=== PATIENT | male | born 1945 | race Caucasian/White ===

== ENCOUNTER 2018-03-02 19:38 | Emergency (ER) | payer MEDICARE, OTHER, SELFPAY ==
[2018-03-02] VITALS (8 sets, daily range): BP systolic 138–159; BP diastolic 69–90; PULSE 68–83; RESP 12–23; TEMP 36.4; O2SAT 94–100
--- NOTE | 2018-03-02 19:58 | DI.CT.S_ITS ---
PROCEDURE: CT ANGIO HEAD AND NECK INDICATIONS: right gaze left weakness TECHNIQUE: Pre-contrast 4.5 mm thick sections acquired from the foramen magnum to the vertex. After the administration of intravenous contrast, 1 mm thick sections acquired from the aortic arch through the [place] of [place]. Post-contrast 4.5 mm thick sections then re-acquired from the foramen magnum to the vertex. 3-dimensional iaheoea-xcrydxvwk-pazycovtbg (MIP) and/or volume rendering reformats were acquired of the central intracranial vasculature and neck separately. COMPARISON: None. FINDINGS: Image quality: Suboptimal, related to motion artifact and suboptimal timing of the contrast bolus. The patient was noted to vomit after the injection. BRAIN: CSF spaces: Ventricles are mildly prominent. Basal cisterns are patent. Bilateral subdural fluid collections are identified, which demonstrate decreased attenuation (left greater than right). Density value is approximately 23 Hounsfield units. No layering fluid collections are evident. The subdural hygroma on the right measures up to approximately 7 mm. The subdural hygroma on the left measures up to approximately 9 mm and is best appreciated on the convexity. These fluid collections may be exaggerated by a frontal lobe parenchymal volume loss. Brain: No midline shift. No intracranial bleeds or masses. Bustos-white matter interface appears intact. There is parenchymal volume loss identified within the bilateral frontal lobes. The bustos-white matter interface within the right frontal region is somewhat attenuated. However, this may in part be related to motion artifact on the noncontrast images. There is increased density identified involving the right middle cerebral artery, compatible with a dense MCA sign (image 12, series 4). Skull and face: Calvarium and facial bones appear intact, without suspicious lesions. Orbits appear normal. Sinuses: Small amount of fluid is seen within the inferior right mastoid air cells. Otherwise, the imaged paranasal sinuses and mastoid air cells are clear. HEAD CT ANGIOGRAPHY: Anterior circulation: There is decreased flow identified within the intracranial portions of the right internal carotid artery when compared to the left. There is absent flow versus we attenuated flow throughout the entire course of the right middle cerebral artery and the proximal aspect of the right anterior cerebral artery. The left internal carotid artery, middle cerebral artery, and anterior strip arteries are widely patent. No aneurysms are evident. Posterior circulation: The right vertebral artery is noted to be dominant. The left vertebral artery is smaller in size and noted to be markedly attenuated within the intracranial portion. There may be high grade narrowing through this region. However, it is difficult to determine whether this is related to an artifact. The basilar artery is normal in course and caliber. The bilateral posterior cerebral arteries are also widely patent and otherwise unremarkable. No aneurysms are identified. The posterior communicating arteries are not definitely seen. NECK CT ANGIOGRAPHY: Carotid system: The great vessels demonstrate a conventional anatomy as they arise from the aortic arch. The origins of the common carotid arteries appear patent. The common carotid arteries demonstrate normal caliber and courses. There is atherosclerosis identified involving the bilateral common carotid arteries, which is mild in nature. There is moderate atherosclerosis involving the left carotid bulb and proximal left internal carotid artery with prominent associated tortuosity. Narrowing of the lumen of the vessel is present by approximately 50-60%. There is ozfa-ug-xmenmppn atherosclerotic irregularity noted involving the right carotid bulb with mild narrowing of the lumen of the vessel by approximately 40-50%. No occlusions are identified. The distal right internal carotid artery is small in size when compared to the left, as described above. Posterior circulation: The origins of the vertebral arteries both appear widely patent. The more superior extracranial portions of both vertebral arteries also demonstrate normal courses and calibers. They join to form a normal appearing basilar artery. Soft tissues: Visualized neck soft tissues demonstrate no suspicious abnormalities. Bones: No suspicious bony lesions. Visualized cervical spine appears normally aligned. Moderate multilevel degenerative changes of the cervical spine are present. There are postoperative changes of the sternum, suggesting prior median sternotomy. IMPRESSION: 1. No acute intracranial hemorrhage. 2. 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 There is no midline shift. 3. There is at least high-grade narrowing and likely occlusion of the right middle cerebral artery as well as the proximal right anterior cerebral artery, suggesting an arterial embolism. Corresponding slight loss of the bustos-white matter differentiation of the right frontal lobe is evident, suggesting diffuse parenchymal edema. 4. Marked irregularity involving the intracranial portion of the distal left vertebral artery may either be related to chronic high-grade atherosclerotic irregularity, acute dissection, or potentially near total acute occlusion and clinical correlation is recommended. Conventional MRI with diffusion imaging would be helpful to evaluate for acute downstream infarctions along the posterior circulation distribution. 5. Rpgx-xi-yvkautlf atherosclerosis of the bilateral cervical carotid is more prominent involving the proximal left internal carotid artery with 50-60% narrowing. There is 40-50% narrowing of the proximal right internal carotid artery. Discussed with Dr. Jon at 2043 hrs. on 03/01/18. Any quantitative measurements of stenosis were performed using NASCET criteria. Dictated by: Tavon Lopez M.D. on 03/02/2018 at 20:35 Approved by: Tavon Lopez M.D. on 03/02/2018 at 20:55
--- NOTE | 2018-03-02 20:05 | ED_ITS ---
HPI - Neuro Symptoms/Deficit General Chief Complaint: Neuro Symptoms/Deficit Stated Complaint: Possible Stroke Time Seen by Provider: 03/02/18 19:59 Source: family and EMS Mode of arrival: EMS History of Present Illness HPI Narrative: Patient is a 72-year-old male presenting with a sudden onset of left sided weakness. He was well all day today out by the pond. He was walking up the hill with grand kids heard him fall at about 645pm. He is noted to have left-sided deficits. He is awake and alert. No blood thinners. Location: left face, left arm and left leg Severity: severe Context: sudden onset Related Data Home Medications Medication Instructions Recorded Confirmed allopurinol 100 mg PO BID 03/02/18 03/02/18 aspirin [Aspir-Low] 81 mg PO DAILY 03/02/18 03/02/18 fluoxetine 20 mg PO DAILY 03/02/18 03/02/18 glipizide 5 mg PO BID 03/02/18 03/02/18 hydrochlorothiazide 25 mg PO DAILY 03/02/18 03/02/18 insulin glargine [Lantus Solostar 5 units SUB-Q DAILY 03/02/18 03/02/18 U-100 Insulin] ketoconazole 1 applic/day TOPICAL DAILY 03/02/18 03/02/18 losartan 100 mg PO DAILY 03/02/18 03/02/18 metformin 500 mg PO DAILY 03/02/18 03/02/18 metoprolol tartrate 50 mg PO BID 03/02/18 03/02/18 pravastatin 20 mg PO DAILY 03/02/18 03/02/18 Allergies Allergy/AdvReac Type Severity Reaction Status Date / Time niacin AdvReac Intermediate Flushing Verified 03/02/18 20:25 Review of Systems Review of Systems All systems reviewed & are unremarkable except as noted in HPI and below Constitutional Denies body ache(s), Denies fever(s) and Denies lethargy Cardiovascular Denies dyspnea and Denies dyspnea on exertion Respiratory Denies cough, Denies dyspnea, Denies dyspnea on exertion and Denies wheezing Gastrointestinal Gastrointestinal: Denies abdominal pain, Denies change in bowel habits, Denies diarrhea, Denies nausea and Denies vomiting Neurologic Reports system reviewed and no additional complaints, except as docu and Reports as per HPI Hematologic/Lymphatic Reports other (On ASA ) Allergic/Immunologic Denies wheezing PFSH Medical History Diabetes (Acute) Gout (Acute) High blood pressure (Acute) High cholesterol (Acute) Surgical History H/O coronary artery bypass surgery (Acute) Social History Smoking Status: Former smoker Exam Initial Vital Signs Initial Vital Signs: Vital Signs Pulse Rate 83 03/02/18 19:45 Respiratory Rate 16 03/02/18 19:45 Blood Pressure 147/90 H 03/02/18 19:45 Pulse Oximetry 100 03/02/18 19:45 Const General: acute distress Nutritional Appearance: overweight Orientation: alert, awake and oriented x3 Other: Diaphoretic HENMT Head: normal to inspection, normocephalic and No contusion Ears: hearing grossly normal bilaterally Face and sinus: face asymmetric (left facial droop) and no abrasions Eyes Eyelids: eyelids normal Pupils: PERRL EOM: EOM intact bilaterally Other: right gaze Chest Chest: other (CABG scar) Resp Effort & Inspection: normal respiratory effort and able to speak in complete sentences Auscultation: clear to auscultation bilaterally Cardio Rate: regular rate Rhythm: regular rhythm Heart Sounds: no click, no gallops, no murmurs and no rubs Pulses: normal peripheral pulses GI Inspection: non-distended Palpation: soft, no hepatosplenomegaly, No guarding, No pulsatile mass and No tender Auscultation: normal bowel sounds Skin General: other (Diaphoretic) Neuro General: alert, awake and oriented x3 Cranial Nerves: No CN's II-XI intact bilaterally, PERRL and No facial strength normal (Left facial droop) Cognition: normal cognition Speech: speech normal Motor: movement abnormality noted (Left upper and lower extremity no movement) Sensory Exam: other (Left-sided sensory deficits) Coordination: vaposu-ka-uquq test normal (Right side only) and cxui-fa-bhft test normal (Right-sided only) Scores NIH Stroke Scale Level of Conciousness: Alert, keenly responsive Ask month/age: Answers both questions correctly. Open/close eyes, close hand: Performs both tasks correctly Best gaze horizontal: Forced deviation or total gaze paresis not overcome Visual sexton: No visual loss Facial palsy: Complete paralysis, absence of movement in the upper and lower face Left arm drift: No movement Right arm drift: No drift for full 10 sec Left leg drift: No movement Right leg drift: No drift for full 10 sec Limb ataxia: Absent Sensory on face/arms/legs: Severe to total sensory loss, not aware of touch, coma, quadriplegic Best language: No aphasia, normal Dysarthria: Normal Extinction or inattention: No abnormality Total NIH Stroke scale score: 15 Course Orders Ordered: ED Orders 03/02/18 19:57 EKG-12 Lead Stat 03/02/18 19:58 CT angio head and neck Stat 03/02/18 20:05 Complete Blood Count MAN DIFF Stat Comprehensive Metabolic Panel Stat Creatine Kinase MB Urgent Partial Thromboplastin Time Stat Prothrombin Time INR Stat Troponin I Stat 03/02/18 21:14 Rapid Drug Screen, Urine Stat Discontinued Medications Sodium Chloride (Normal Saline 0.9%) 1,000 mls @ 150 mls/hr IV CONT DIXON Last Infusion: 03/02/18 21:53 Dose: 150 mls/hr Admin: 03/02/18 20:32 Dose: 150 mls/hr Ondansetron HCl (Zofran) 4 mg IV NOW ONE Stop: 03/02/18 20:26 Last Admin: 03/02/18 20:31 Dose: 4 mg Consultations Consultation #1: Dr. Dennison, [facility] neurology is aware of the patient. No images yet but will look for them. May give tPA if noncontrast head CT is negative. Time: 20:14 Consultation #2: [facility] neurologist has reviewed images agrees all with Radiology possible all old subdural, no longer tPA candidate still candidate for thrombectomy. Ok to transfer. Time: 20:51 Vital Signs - 8 hr 03/02/18 19:45 03/02/18 20:07 03/02/18 20:16 Temperature 97.6 F Pulse Rate 83 83 82 Respiratory Rate 16 16 21 Blood Pressure 147/90 H Blood Pressure [Right Arm] 147/90 H 151/78 H Pulse Oximetry 100 100 99 03/02/18 20:37 03/02/18 20:46 03/02/18 21:00 Temperature Pulse Rate 73 75 69 Respiratory Rate 16 12 23 Blood Pressure Blood Pressure [Right Arm] 159/87 H 154/73 H 138/69 H Pulse Oximetry 98 100 94 03/02/18 21:03 03/02/18 21:37 Temperature Pulse Rate 68 72 Respiratory Rate 16 16 Blood Pressure 157/87 H Blood Pressure [Right Arm] 138/69 H Pulse Oximetry 98 97 MDM - Neuro Symptoms/Deficit Lab Data Attestation: I reviewed the patient's lab results. Result diagrams: 03/02/18 20:05 03/02/18 20:05 Lab Results 03/02/18 03/02/18 03/02/18 Range/Units 20:05 20:05 20:05 WBC 10.2 (4.5-11.0) X10^3/uL RBC 4.40 L (4.5-5.9) X10^6/uL Hgb 14.7 (13.5-17.5) g/dL Hct 42.6 (41-53) % MCV 96.9 (80-100) fL MCH 33.5 (26-34) PG MCHC 34.6 (30-36) % RDW 13.2 (11.6-14.8) % Plt Count 189 (150-400) X10^3/uL Total Counted 100 Seg Neutrophils % 66.0 (38-70) % Band Neutrophils % 3.0 (3-7) % Lymphocytes % (Manual) 23.0 L (25-45) % Monocytes % (Manual) 4.0 (2-11) % Eosinophils % (Manual) 4.0 (2-4) % Neutrophils # (Manual) 7038 H (5959-9412) /uL Differential Comment Normal morphology RBC Morphology Not Reportable PT 12.5 (10.1-12.7) SECONDS INR 1.2 (0.9-1.3) APTT 33 (26.4-36.2) SECONDS Sodium 139 (137-145) mmol/L Potassium 4.0 (3.4-5.1) mmol/L Chloride 98 (98-107) mmol/L Carbon Dioxide 26 (22-32) mmol/L BUN 36 H (9-20) mg/dL Creatinine 1.00 (0.66-1.25) mg/dL Estimated GFR > 60.0 (>60) mL/min BUN/Creatinine Ratio 36.0 H (6-22) Glucose 164 H (80-110) mg/dL Calcium 9.2 (8.4-10.2) mg/dL Total Bilirubin 0.5 (0.2-1.3) mg/dL AST 62 H (17-59) IU/L ALT 113 H (21-72) IU/L Alkaline Phosphatase 102 (38-126) U/L Troponin I < 0.012 (0.01-0.034) ng/mL Total Protein 7.0 (6.3-8.2) g/dL Albumin 4.0 (3.5-5.0) g/dL Globulin 3.0 (1.7-4.1) g/dL Albumin/Globulin Ratio 1.3 (1.0-2.8) Urine Opiates Screen (Negative) Ur Oxycodone Screen (Negative) Urine Methadone Screen (Negative) Ur Barbiturates Screen (Negative) U Tricyclic Antidepress (Negative) Ur Phencyclidine Scrn (Negative) Ur Amphetamines Screen (Negative) U Methamphetamines Scrn (Negative) Ur MDMA Scrn (Ecstasy) (Negative) U Benzodiazepines Scrn (Negative) Urine Cocaine Screen (Negative) U Marijuana (THC) Screen (Negative) 03/02/18 Range/Units 21:14 WBC (4.5-11.0) X10^3/uL RBC (4.5-5.9) X10^6/uL Hgb (13.5-17.5) g/dL Hct (41-53) % MCV (80-100) fL MCH (26-34) PG MCHC (30-36) % RDW (11.6-14.8) % Plt Count (150-400) X10^3/uL Total Counted Seg Neutrophils % (38-70) % Band Neutrophils % (3-7) % Lymphocytes % (Manual) (25-45) % Monocytes % (Manual) (2-11) % Eosinophils % (Manual) (2-4) % Neutrophils # (Manual) (0487-0218) /uL Differential Comment RBC Morphology PT (10.1-12.7) SECONDS INR (0.9-1.3) APTT (26.4-36.2) SECONDS Sodium (137-145) mmol/L Potassium (3.4-5.1) mmol/L Chloride (98-107) mmol/L Carbon Dioxide (22-32) mmol/L BUN (9-20) mg/dL Creatinine (0.66-1.25) mg/dL Estimated GFR (>60) mL/min BUN/Creatinine Ratio (6-22) Glucose (80-110) mg/dL Calcium (8.4-10.2) mg/dL Total Bilirubin (0.2-1.3) mg/dL AST (17-59) IU/L ALT (21-72) IU/L Alkaline Phosphatase (38-126) U/L Troponin I (0.01-0.034) ng/mL Total Protein (6.3-8.2) g/dL Albumin (3.5-5.0) g/dL Globulin (1.7-4.1) g/dL Albumin/Globulin Ratio (1.0-2.8) Urine Opiates Screen Negative (Negative) Ur Oxycodone Screen Negative (Negative) Urine Methadone Screen Negative (Negative) Ur Barbiturates Screen Negative (Negative) U Tricyclic Antidepress Positive H (Negative) Ur Phencyclidine Scrn Negative (Negative) Ur Amphetamines Screen Negative (Negative) U Methamphetamines Scrn Negative (Negative) Ur MDMA Scrn (Ecstasy) Negative (Negative) U Benzodiazepines Scrn Negative (Negative) Urine Cocaine Screen Negative (Negative) U Marijuana (THC) Screen Negative (Negative) Imaging Data CTA Head and neck: Radiologist's impression: PROCEDURE: CT ANGIO HEAD AND NECK INDICATIONS: right gaze left weakness TECHNIQUE: Pre-contrast 4.5 mm thick sections acquired from the foramen magnum to the vertex. After the administration of intravenous contrast, 1 mm thick sections acquired from the aortic arch through the [place] of [place]. Post-contrast 4.5 mm thick sections then re- acquired from the foramen magnum to the vertex. 3-dimensional maximum-intensity- projection (MIP) and/or volume rendering reformats were acquired of the central intracranial vasculature and neck separately. COMPARISON: None. FINDINGS: Image quality: Suboptimal, related to motion artifact and suboptimal timing of the contrast bolus. The patient was noted to vomit after the injection. BRAIN: CSF spaces: Ventricles are mildly prominent. Basal cisterns are patent. Bilateral subdural fluid collections are identified, which demonstrate decreased attenuation (left greater than right). Density value is approximately 23 Hounsfield units. No layering fluid collections are evident. The subdural hygroma on the right measures up to approximately 7 mm. The subdural hygroma on the left measures up to approximately 9 mm and is best appreciated on the convexity. These fluid collections may be exaggerated by a frontal lobe parenchymal volume loss. Brain: No midline shift. No intracranial bleeds or masses. Bustos-white matter interface appears intact. There is parenchymal volume loss identified within the bilateral frontal lobes. The bustos-white matter interface within the right frontal region is somewhat attenuated. However, this may in part be related to motion artifact on the noncontrast images. There is increased density identified involving the right middle cerebral artery, compatible with a dense MCA sign (image 12, series 4). Skull and face: Calvarium and facial bones appear intact, without suspicious lesions. Orbits appear normal. Sinuses: Small amount of fluid is seen within the inferior right mastoid air cells. Otherwise, the imaged paranasal sinuses and mastoid air cells are clear. HEAD CT ANGIOGRAPHY: Anterior circulation: There is decreased flow identified within the intracranial portions of the right internal carotid artery when compared to the left. There is absent flow versus we attenuated flow throughout the entire course of the right middle cerebral artery and the proximal aspect of the right anterior cerebral artery. The left internal carotid artery, middle cerebral artery, and anterior strip arteries are widely patent. No aneurysms are evident. Posterior circulation: The right vertebral artery is noted to be dominant. The left vertebral artery is smaller in size and noted to be markedly attenuated within the intracranial portion. There may be high grade narrowing through this region. However, it is difficult to determine whether this is related to an artifact. The basilar artery is normal in course and caliber. The bilateral posterior cerebral arteries are also widely patent and otherwise unremarkable. No aneurysms are identified. The posterior communicating arteries are not definitely seen. NECK CT ANGIOGRAPHY: Carotid system: The great vessels demonstrate a conventional anatomy as they arise from the aortic arch. The origins of the common carotid arteries appear patent. The common carotid arteries demonstrate normal caliber and courses. There is atherosclerosis identified involving the bilateral common carotid arteries, which is mild in nature. There is moderate atherosclerosis involving the left carotid bulb and proximal left internal carotid artery with prominent associated tortuosity. Narrowing of the lumen of the vessel is present by approximately 50-60%. There is tevg-ze-zytymiqe atherosclerotic irregularity noted involving the right carotid bulb with mild narrowing of the lumen of the vessel by approximately 40-50%. No occlusions are identified. The distal right internal carotid artery is small in size when compared to the left, as described above. Posterior circulation: The origins of the vertebral arteries both appear widely patent. The more superior extracranial portions of both vertebral arteries also demonstrate normal courses and calibers. They join to form a normal appearing basilar artery. Soft tissues: Visualized neck soft tissues demonstrate no suspicious abnormalities. Bones: No suspicious bony lesions. Visualized cervical spine appears normally aligned. Moderate multilevel degenerative changes of the cervical spine are present. There are postoperative changes of the sternum, suggesting prior median sternotomy. IMPRESSION: 1. No acute intracranial hemorrhage. 2. 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 There is no midline shift. 3. There is at least high-grade narrowing and likely occlusion of the right middle cerebral artery as well as the proximal right anterior cerebral artery, suggesting an arterial embolism. Corresponding slight loss of the bustos-white matter differentiation of the right frontal lobe is evident, suggesting diffuse parenchymal edema. 4. Marked irregularity involving the intracranial portion of the distal left vertebral artery may either be related to chronic high-grade atherosclerotic irregularity , acute dissection, or potentially near total acute occlusion and clinical correlation is recommended. Conventional MRI with diffusion imaging would be helpful to evaluate for acute downstream infarctions along the posterior circulation distribution. 5. Xauv-ey-tdympvru atherosclerosis of the bilateral cervical carotid is more prominent involving the proximal left internal carotid artery with 50-60% narrowing. There is 40-50% narrowing of the proximal right internal carotid artery. Discussed with Dr. Jon at 2043 hrs. on 03/01/18. Any quantitative measurements of stenosis were performed using NASCET criteria. Dictated by: Tavon Lopez M.D. on 03/02/2018 at 20:35 ECG Data Attestation: I personally reviewed and interpreted this ECG as follows: Prior ECG tracings: not available for review Interpretation: Sinus rhythm right bundle-branch block rate [address] changes no prior to compare [facility] Narrative Medical decision making narrative: Symptoms concerning for large vessel occlusion stroke. CTA confirms all right MCA. Patient no longer tPA candidate with CT concerning for possible bilateral subdurals which do appear chronic. at bedside both patient and agree to flight transport down to [facility] Patient continues to be awake and alert but really no improvement in neurologic signs. Critical Care Time Critical Care Time: Yes Total Critical Care Time: 45 Attestation: The patient satisfied the definition of criticality in that they had a high probability of imminent deterioration of their conditon. Critical care time includes time spent at the bedside, plus where appropriate: gathering information from family, EMS, old records, caregivers; interpretation of test results; and time spent discussing patient with other physicians Discharge Plan Departure Patient Disposition: [facility] Clinical Impression: Cerebrovascular accident Discharge Date/Time: 03/02/18 21:39 Interventions: ED Discharge Assessment Last Done: 03/02/18 21:37 Prescriptions: No Action glipizide 5 mg tablet extended release 24hr 5 mg PO BID RF: 0 allopurinol 100 mg tablet 100 mg PO BID RF: 0 aspirin [Aspir-Low] 81 mg tablet,delayed release (DR/EC) 81 mg PO DAILY RF: 0 metoprolol tartrate 50 mg tablet 50 mg PO BID RF: 0 pravastatin 20 mg tablet 20 mg PO DAILY RF: 0 hydrochlorothiazide 25 mg tablet 25 mg PO DAILY RF: 0 ketoconazole 2 % cream 1 applic/day Topical DAILY RF: 0 losartan 100 mg tablet 100 mg PO DAILY RF: 0 fluoxetine 20 mg capsule 20 mg PO DAILY RF: 0 metformin 500 mg tablet extended release 24 hr 500 mg PO DAILY RF: 0 insulin glargine [Lantus Solostar U-100 Insulin] 100 unit/mL (3 mL) insulin pen 5 units Sub-Q DAILY RF: 0 Referrals: Harman Fuller MD [Non-Staff] -
[2018-03-02 20:15] LABS: Hematocrit 42.6 % (41-53); Hemoglobin 14.7 g/dL (13.5-17.5); Mean Corpuscular HGB Conc 34.6 % (30-36); Mean Corpuscular Hemoglobin 33.5 PG (26-34); Mean Corpuscular Volume 96.9 fL (80-100); Platelet Count 189 X10^3/uL (150-400); Red Cell Distribution Width 13.2 % (11.6-14.8); White Blood Cell Count 10.2 X10^3/uL (4.5-11.0)
[2018-03-02 20:23] LABS: INR 1.2 (0.9-1.3); Prothrombin Time 12.5 SECONDS (10.1-12.7)
--- NOTE | 2018-03-02 20:25 | PC.NURSE ---
reports pt found down at 1845 at home, pt reports he was walking, got dizzy, fell and hit his head. Found with slurred speech, L sided weakness, R sided gaze. arrived diaphoretic. At 1940 he was placed in CT scanner, glucose 160, BP 147/90. Pt had episode of vomiting after contrast dye injected. Immediately turned on L side and EMS assisted suctioning at CT scanner, nares suctioned with minor bleeding to R nare which has ceased. Placed on portable monitor and vitals obtained. AAOx3- speech is slurred yet intelligible and pt able to communicate needs well. Pt assisted back to room and placed on otolaryngologist. L side remains flaccid with R sided gaze and L sided facial droop. , Nhi at bedside. Images being pushed to German and Dr Jon in contact with Neuro. Telestroke at bedside if needed. [facility] notified. H/o Bypass x 4, DM, HTN, Gout, Hyperlipidemia
[2018-03-02 20:26] LABS: PTT Partial Thromboplastin Tim 33 SECONDS (26.4-36.2)
--- NOTE | 2018-03-02 20:26 | PC.NURSE ---
While in CT pt began vomiting large amounts of partially digested food. Turned to side / recovery position. Given zofran 4 mg ivpush. Mouth and airway suctioned of vomitus. Pt w/ clear aiway after vomiting. Easy work of breathing.
[2018-03-02 20:27] LABS: Alanine Aminotransferase 113 IU/L (21-72); Albumin Globulin Ratio 1.3 (1.0-2.8); Alkaline Phosphatase 102 U/L (38-126); Aspartate Aminotransferase 62 IU/L (17-59); Bilirubin Total 0.5 mg/dL (0.2-1.3); Blood Urea Nitrogen 36 mg/dL (9-20); Calcium 9.2 mg/dL (8.4-10.2); Carbon Dioxide 26 mmol/L (22-32); Chloride 98 mmol/L (98-107); Estimated Glomerular Filt Rate > 60.0 mL/min (>60); Glucose 164 mg/dL (80-110); HEMOLYSIS 49 (0-50); Sodium 139 mmol/L (137-145)
[2018-03-02] MEDS: ONDANSETRON 4 MG/2 ML INJ IV (20:31)
[2018-03-02] MEDS: SODIUM CHLORIDE 0.9% 1,000 ML 150 ML IV (20:32)
[2018-03-02 20:38] LABS: Troponin I < 0.012 ng/mL (0.01-0.034)
--- NOTE | 2018-03-02 20:47 | PC.NURSE ---
Continue to be 1:1 with pt at this time. Pt is able to move L leg minimally at this time which is improvement from previous assessment--cannot lift off bed but able to move side to side. 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 [facility] dispatched and code IR transfer report from being completed by this RN.
[2018-03-02 21:25] LABS: Urine Amphetamines Negative (Negative); Urine Barbiturates Negative (Negative); Urine Benzodiazepines Negative (Negative); Urine Cocaine Negative (Negative); Urine MDMA Negative (Negative); Urine Methadone Negative (Negative); Urine Methamphetamines Negative (Negative); Urine Morphine/Opi cutoff 2000 Negative (Negative); Urine Oxycodone Negative (Negative); Urine Phencyclidine Negative (Negative); Urine Tetrahydrocannabinol Negative (Negative); Urine Tricyclic Antidepressant Positive (Negative)
--- NOTE | 2018-03-02 21:33 | PC.NURSE ---
Eloy in department. Report given to [place] RN, Edgar. Pt leaving at this time. Monserrat from the transfer center informed of pt's departure [phone]
[2018-03-02 22:00] LABS: Neutrophils Absolute Manual 7038 /uL (3000-5900); Total Cells Counted 100
[2018-03-02 22:04] LABS: Morphology Comment Normal Morphology
== END 2018-03-02 21:39 | disposition short-term general hospital (02) ==
PROVIDERS: Emergency Provider Emergency Medicine
DX: I63.9 Cerebral infarction, unspecified (principal)
CPT/HCPCS: 36591; 51701; 70496; 70498; 80053; 80305; 81003; 82553; 82962; 84484; 85025; 85610; 85730; 93005; 93010; 93041; 96361; 96374; 99285; 99291; 99292; J2405; Q9967